=== PATIENT | male | born 1990 | race Hispanic/Latino ===

== ENCOUNTER 2018-06-10 20:39 | Emergency (ER) | payer OTHER ==
--- NOTE | 2018-06-10 21:04 | ER ---
Nurse's Notes [facility] Name: Melvin Campbell Age: 27 yrs Sex: Male : 1990 Arrival Date: 06/10/2018 Time: 20:42 Bed 11 Private MD: Diagnosis: Pain in right shoulder;Radiculopathy, cervical region-spasm Presentation: 06/10 20:49 Presenting complaint: Patient states: right shoulder and right side neck pain X1 week. ak1 pt denies injury. 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 Transition of care: patient was not received from another setting of care. Onset of symptoms is unknown. Risk Assessment: Do you want to hurt yourself or someone else? Patient reports no desire to harm self or others. Initial Sepsis Screen: Does the patient meet any 2 criteria? No. Patient's initial sepsis screen is negative. Does the patient have a suspected source of infection? No. Patient's initial sepsis screen is negative. Care prior to arrival: None. 20:49 Method Of Arrival: Ambulatory ak1 20:49 Acuity: ALEE 4 ak1 Triage Assessment: 20:50 General: Appears in no apparent distress. Behavior is calm, cooperative. Pain: ak1 Complains of pain in right shoulder, right neck. Historical: - Allergies: 20:50 No Known Allergies; ak1 - Home Meds: 20:50 None [Active]; ak1 - PMHx: 20:50 None; ak1 - PSHx: 20:50 testicle sx; ak1 - Immunization history:: Adult Immunizations unknown. - Social history:: Smoking status: Patient/guardian denies using tobacco. - Ebola Screening: : No symptoms or risks identified at this time. - Family history:: not pertinent. Screenin:34 Abuse screen: Denies threats or abuse. Denies injuries from another. Nutritional aj screening: No deficits noted. Tuberculosis screening: No symptoms or risk factors identified. Fall Risk None identified. Assessment: 21:34 General: Appears in no apparent distress. comfortable, Behavior is calm, cooperative, aj appropriate for age. Pain: Complains of pain in right sternocleidomastoid and right trapezius and right shoulder. Neuro: Level of Consciousness is awake, alert, obeys commands, Oriented to person, place, time, situation, Appropriate for age. Respiratory: Airway is patent Respiratory effort is even, unlabored, Respiratory pattern is regular, symmetrical. Derm: Skin is intact, is healthy with good turgor, Skin is pink, warm \T\ dry. normal. Musculoskeletal: Reports pain in right sternocleidomastoid and right trapezius and right shoulder. Vital Signs: 20:50 BP 132 / 87; Pulse 69; Resp 16; Temp 98(TE); Pulse Ox 98% on R/A; Weight 75.75 kg (R); ak1 Height 6 ft. 0 in. (182.88 cm) (R); Pain 8/10; 21:54 BP 128 / 75; Pulse 69; Resp 17; Pulse Ox 99% on R/A; aj 20:50 Body Mass Index 22.65 (75.75 kg, 182.88 cm) ak1 ED Course: 20:42 Patient arrived in ED. am2 20:50 Triage completed. ak1 20:50 Arm band placed on Patient placed in an exam room, on a stretcher, Patient notified of ak1 wait time. 20:52 Maya Haji, GOLDEN is Primary Nurse. aj 20:53 Tate Flores MD is Attending Physician. babs 21:04 Temo Bourne MD is Referral Physician. babs 21:27 Shoulder Right (2 View) XRAY In Process Unspecified. EDMS 21:28 Chest Single View XRAY In Process Unspecified. EDMS 21:29 C Spine Ap/Lat XRAY In Process Unspecified. EDMS 21:34 Patient has correct armband on for positive identification. aj 21:34 No provider procedures requiring assistance completed. Patient did not have IV access aj during this emergency room visit. Administered Medications: 21:34 Drug: TORadol 60 mg Route: IM; Site: left deltoid; aj 21:49 Follow up: Response: Pain is decreased aj 21:34 Drug: Decadron 4 mg Route: PO; aj 21:49 Follow up: Response: Pain is decreased aj 21:34 Drug: Chromo 10 mg-325 mg 1 tabs Route: PO; aj 21:50 Follow up: Response: Pain is decreased aj Outcome: 21:04 Discharge ordered by . babs 21:54 Discharged to home ambulatory. aj 21:54 Condition: good 21:54 Discharge instructions given to patient, family, Instructed on discharge instructions, follow up and referral plans. medication usage, Demonstrated understanding of instructions, follow-up care, medications, Prescriptions given X 4. 21:55 Patient left the ED. aj Signatures: Dispatcher [employer] Maya Gonzalez, Tate Donahue RN, MD MD cha Krenek, Amber, RN RN Maya Diaz am2
--- NOTE | 2018-06-10 21:04 | EDPHYS ---
Physician Documentation [facility] Name: Melvin Campbell Age: 27 yrs Sex: Male : 1990 Arrival Date: 06/10/2018 Time: 20:42 Bed 11 Private MD: ED Physician Tate Flores HPI: 06/10 20:59 This 27 yrs old Male presents to ER via Ambulatory with complaints of Shoulder babs Pain - rad to neck. 20:59 The patient or guardian complains of decreased range of motion, pain. right shoulder, babs right trapezius and right sternocleidomastoid. Historical: - Allergies: 20:50 No Known Allergies; ak1 - Home Meds: 20:50 None [Active]; ak1 - PMHx: 20:50 None; ak1 - PSHx: 20:50 testicle sx; ak1 - Immunization history:: Adult Immunizations unknown. - Social history:: Smoking status: Patient/guardian denies using tobacco. - Ebola Screening: : No symptoms or risks identified at this time. - Family history:: not pertinent. ROS: 21:00 Constitutional: Negative for fever, chills, and weight loss, Eyes: Negative for injury, babs pain, redness, and discharge, ENT: Negative for injury, pain, and discharge, Cardiovascular: Negative for chest pain, palpitations, and edema, Respiratory: Negative for shortness of breath, cough, wheezing, and pleuritic chest pain, Abdomen/GI: Negative for abdominal pain, nausea, vomiting, diarrhea, and constipation, Back: Negative for injury and pain, : Negative for injury, bleeding, discharge, and swelling, MS/Extremity: Negative for injury and deformity, Skin: Negative for injury, rash, and discoloration, Neuro: Negative for headache, weakness, numbness, tingling, and seizure, Psych: Negative for depression, anxiety, suicide ideation, homicidal ideation, and hallucinations, Allergy/Immunology: Negative for hives, rash, and allergies, Endocrine: Negative for neck swelling, polydipsia, polyuria, polyphagia, and marked weight changes, Hematologic/Lymphatic: Negative for swollen nodes, abnormal bleeding, and unusual bruising. 21:00 Neck: Positive for 21:00 Neck: Positive for pain with movement, pain at rest. Exam: 21:00 Constitutional: This is a well developed, well nourished patient who is awake, alert, babs and in no acute distress. Head/Face: Normocephalic, atraumatic. Eyes: Pupils equal round and reactive to light, extra-ocular motions intact. Lids and lashes normal. Conjunctiva and sclera are non-icteric and not injected. Cornea within normal limits. Periorbital areas with no swelling, redness, or edema. ENT: Nares patent. No nasal discharge, no septal abnormalities noted. Tympanic membranes are normal and external auditory canals are clear. Oropharynx with no redness, swelling, or masses, exudates, or evidence of obstruction, uvula midline. Mucous membranes moist. Chest/axilla: Normal chest wall appearance and motion. Nontender with no deformity. No lesions are appreciated. Cardiovascular: Regular rate and rhythm with a normal S1 and S2. No gallops, murmurs, or rubs. Normal PMI, no JVD. No pulse deficits. Respiratory: Lungs have equal breath sounds bilaterally, clear to auscultation and percussion. No rales, rhonchi or wheezes noted. No increased work of breathing, no retractions or nasal flaring. Abdomen/GI: Soft, non-tender, with normal bowel sounds. No distension or tympany. No guarding or rebound. No evidence of tenderness throughout. Back: No spinal tenderness. No costovertebral tenderness. Full range of motion. Male : Normal genitalia with no discharge or lesions. Skin: Warm, dry with normal turgor. Normal color with no rashes, no lesions, and no evidence of cellulitis. Neuro: Awake and alert, GCS 15, oriented to person, place, time, and situation. Cranial nerves II-XII grossly intact. Motor strength 5/5 in all extremities. Sensory grossly intact. Cerebellar exam normal. Normal gait. Psych: Awake, alert, with orientation to person, place and time. Behavior, mood, and affect are within normal limits. 21:00 Musculoskeletal/extremity: Extremities: grossly normal except: decreased ROM, pain, ROM: full passive range of motion, limited active range of motion, Circulation is intact in all extremities. Sensation intact. Compartment Syndrome exam of affected extremity: is normal. DVT Exam: no swelling, negative Homans' sign noted on exam, no appreciated bluish discoloration, no erythema, no increased warmth, pain, tenderness. Vital Signs: 20:50 BP 132 / 87; Pulse 69; Resp 16; Temp 98(TE); Pulse Ox 98% on R/A; Weight 75.75 kg (R); ak1 Height 6 ft. 0 in. (182.88 cm) (R); Pain 8/10; 21:54 BP 128 / 75; Pulse 69; Resp 17; Pulse Ox 99% on R/A; aj 20:50 Body Mass Index 22.65 (75.75 kg, 182.88 cm) ak1 MDM: 20:53 Patient medically screened. [facility] 21:02 Data reviewed: vital signs, nurses notes, radiologic studies, plain films. [facility] 06/10 20:59 Order name: Shoulder Right (2 View) XRAY [facility] 06/10 20:59 Order name: Chest Single View XRAY [facility] 06/10 20:59 Order name: C Spine Ap/Lat XRAY [facility] Administered Medications: 21:34 Drug: TORadol 60 mg Route: IM; Site: left deltoid; aj 21:49 Follow up: Response: Pain is decreased aj 21:34 Drug: Decadron 4 mg Route: PO; aj 21:49 Follow up: Response: Pain is decreased aj 21:34 Drug: [place] 10 mg-325 mg 1 tabs Route: PO; aj 21:50 Follow up: Response: Pain is decreased aj Disposition: 06/10/18 21:04 Discharged to Home. Impression: Pain in right shoulder, Radiculopathy, cervical region - spasm. - Condition is Stable. - Discharge Instructions: Cervical Radiculopathy, Muscle Cramps and Spasms, Musculoskeletal Pain, Shoulder Pain, Shoulder Range of Motion Exercises, Shoulder Pain, [id number], Muscle Cramps and Spasms, [id number], Cervical Radiculopathy, [id number]. - Prescriptions for Ibuprofen 600 mg Oral Tablet - take 1 tablet by ORAL route every 8 hours As needed take with food; 21 tablet. Tylenol- Codeine #3 300-30 mg Oral Tablet - take 2 tablet by ORAL route every 6 hours As needed; 30 tablet. Medrol (Matt) 4 mg Oral Tablets, Dose Pack - take 1 tablet by ORAL route as directed - follow package instructions; 1 packet. Robaxin 500 mg Oral Tablet - take 2 tablets by ORAL route every 6 hours As needed; 28 tablet. - Medication Reconciliation Form, Thank You Letter, Antibiotic Education, Prescription Opioid Use form. - Follow up: Private Physician; When: 2 - 3 days; Reason: Recheck today's complaints, Continuance of care, Re-evaluation by your physician. Follow up: Temo Bourne MD; When: 2 - 3 days; Reason: Recheck today's complaints, Re-evaluation by your physician. - Problem is new. - Symptoms have improved. Signatures: Dispatcher [employer] EDMaya Bauer RN RN aj Anderson, Corey, MD MD cha Krenek, Amber, RN RN ak1 Corrections: (The following items were deleted from the chart) 21:04 21:04 06/10/2018 21:04 Discharged to Home. Impression: Pain in right shoulder; babs Radiculopathy, cervical region. Condition is Stable. Forms are Medication Reconciliation Form, Thank You Letter, Antibiotic Education, Prescription Opioid Use. Follow up: Private Physician; When: 2 - 3 days; Reason: Recheck today's complaints, Continuance of care, Re-evaluation by your physician. Problem is new. Symptoms have improved. [facility] 21:34 21:04 06/10/2018 21:04 Discharged to Home. Impression: Pain in right shoulder; babs Radiculopathy, cervical region. Condition is Stable. Forms are Medication Reconciliation Form, Thank You Letter, Antibiotic Education, Prescription Opioid Use. Follow up: Private Physician; When: 2 - 3 days; Reason: Recheck today's complaints, Continuance of care, Re-evaluation by your physician. Follow up: Dr. Temo Bourne; When: 2 - 3 days; Reason: Recheck today's complaints, Re-evaluation by your physician. Problem is new. Symptoms have improved. [facility] 21:55 21:34 06/10/2018 21:04 Discharged to Home. Impression: Pain in right shoulder; aj Radiculopathy, cervical region - spasm. Condition is Stable. Discharge Instructions: Cervical Radiculopathy, Musculoskeletal Pain, Shoulder Pain, Shoulder Range of Motion Exercises, Shoulder Pain, [id number], Cervical Radiculopathy, [id number]. Prescriptions for Ibuprofen 600 mg Oral Tablet - take 1 tablet by ORAL route every 8 hours As needed take with food; 21 tablet, Tylenol-Codeine #3 300-30 mg Oral Tablet - take 2 tablet by ORAL route every 6 hours As needed; 30 tablet, Medrol (Matt) 4 mg Oral Tablets, Dose Pack - take 1 tablet by ORAL route as directed - follow package instructions; 1 packet. and Forms are Medication Reconciliation Form, Thank You Letter, Antibiotic Education, Prescription Opioid Use. Follow up: Private Physician; When: 2 - 3 days; Reason: Recheck today's complaints, Continuance of care, Re-evaluation by your physician. Follow up: Dr. Temo Bourne; When: 2 - 3 days; Reason: Recheck today's complaints, Re-evaluation by your physician. Problem is new. Symptoms have improved. babs
[2018-06-10] MEDS ORDERED: DEXAMETHASONE 4 MG TAB ONE (21:14)
[2018-06-10] MEDS ORDERED: KETOROLAC 30 MG/ML INJ ONE (21:14)
[2018-06-10] MEDS ORDERED: HYDROCODONE/APAP 10/325 TAB ONE (21:14)
--- NOTE | 2018-06-10 21:45 | RAD REPORT ---
EXAM DESCRIPTION: RAD - C Spine Ap/Lat - 06/10/2018 9:28 pm CLINICAL HISTORY: Neck pain FINDINGS: Loss of the normal lordosis of the cervical spine may be secondary to muscle spasm or posi tioning No fracture or dislocation is seen. Mild spondylosis involves distal cervical spine Bilateral small cervical ribs are noted
--- NOTE | 2018-06-10 21:46 | RAD REPORT ---
EXAM DESCRIPTION: Jose Single View06/10/2018 9:29 pm CLINICAL HISTORY: Chest pain COMPARISON: none FINDINGS: The lungs appear clear of acute infiltrate. The heart is normal size IMPRESSION: No acute abnormalities displayed
--- NOTE | 2018-06-10 21:47 | RAD REPORT ---
EXAM DESCRIPTION: RAD - Shoulder Right 2 View - 06/10/2018 9:28 pm CLINICAL HISTORY: Right shoulder pain FINDINGS: No fracture or dislocation is seen. No bone or joint abnormality seen
== END 2018-06-10 21:55 | disposition home or self-care (01) ==
LOC: ER 20:39
DX: M54.12 Radiculopathy, cervical region (principal); R25.2 Cramp and spasm
CPT/HCPCS: 71045; 72040; 96372; 99283